=== PATIENT | female | born 1970 | race Caucasian/White ===

== ENCOUNTER → 2019-02-15 10:28 | Outpatient (CLI) | payer OTHER, SELFPAY ==
--- NOTE | 2019-02-15 10:32 | BI_ITS ---
MAMMOGRAPHY - BILATERAL SCREENING REASON FOR EXAM: Female, 48 years old. Routine annual screening examination. PERTINENT HISTORY: Non-contributory. History of prior right breast cyst aspiration. TECHNIQUE: Digital bilateral breast cherry (3D mammographic acquisition) in the CC and MLO projections. 2-D mediolateral oblique (MLO) and craniocaudad (CC) views of both breasts were obtained. CAD: Full Field Digital Mammography with Computer Added Detection was performed. COMPARISON: Comparison is made with prior study dated October 22, 2017 and August 22, 2013. FINDINGS: Breast Composition: The breasts are extremely dense, which lowers the sensitivity of mammography. The previously seen dominant nodular density in the upper lateral portion of the left breast is not seen at this time. There is a residual 1.2 cm x 0.9 cm well-defined nodular density in the inferior midportion of the right breast. No other significant abnormalities are identified. BI/SCREENING MAMM (CAD), BILAT IMPRESSION: Interval resolution of the nodular density in the left breast with residual small nodular density in the inferior midportion of the right breast. Yearly follow-up mammogram recommended. (A) ASSESSMENT CATEGORY: BIRADS Category 2: Benign. A letter regarding these results will be sent to the patient by the facility within 30 days. Approximately 10% of breast cancers are not detected by mammography. A normal mammogram should not delay biopsy of a clinically suspicious abnormality. [id number] Electronically Signed: Rayray Cruz, at 13:10 EDT , Service support ,
== END ==
PROVIDERS: Referring Provider Obstetrics & Gynecology; Visit Provider Obstetrics & Gynecology
DX: Z12.31 Encounter for screening mammogram for malignant neoplasm of breast (principal)
CPT/HCPCS: 77063; 77067

== ENCOUNTER → 2019-12-16 13:55 | Outpatient (CLI) | payer OTHER, SELFPAY ==
[2017-10-26 13:03] VITALS: BMI 22.3
== END ==
PROVIDERS: Visit Provider Obstetrics & Gynecology
DX: N39.0 Urinary tract infection, site not specified (principal)
CPT/HCPCS: 87086; 87088

== ENCOUNTER 2019-12-16 22:40 | Emergency (ER) | payer OTHER, SELFPAY ==
[2019-12-16 22:41] VITALS: BP 118/74; PULSE 89; RESP 18; TEMP 36.6; O2SAT 97; BMI 23.0
[2019-12-16] MEDS: 0.9% Normal Saline 1,000 ML 1000 ML IV (23:55)
[2019-12-16] MEDS: Ondansetron 4 MG/2 ML Vial IV (23:57)
[2019-12-16] MEDS: Morphine 4 MG/ML Syringe IV (23:59)
[2019-12-17 00:19] LABS: Bacteria 0 SEEN /hpf (None Seen); Mucous, Urine 0 SEEN /hpf (<or=2+)
[2019-12-17 00:30] LABS: Color, Urine Yellow (Yellow); Glucose, Dipstick Normal (Normal); Ketone-Dipstick 5 mg/dl (Negative); Leukocyte Esterase-Dipstick Negative /ul (Negative); Nitrite-Dipstick Negative (Negative); Occult Blood-Urine 250 /ul (Negative); Protein-Dipstick Negative (Negative); Specific Gravity, Urine 1.025 (1.002-1.030); Urine Bilirubin Dipstick Negative (Negative); Urine Clarity Clear (Clear); Urine Urobilinogen Normal (Normal)
[2019-12-17 00:45] LABS: ALB/GLOB Ratio 1.6 RATIO (0.9-2.4); AST(SGOT) 11 U/L (15-37); Alanine Aminotransfer ALT/SGPT 25 U/L (13-56); Albumin, Serum 4.3 g/dL (3.2-5.0); Alkaline Phosphatase 58 U/L (45-117); Anion Gap 3 (5-15); BUN 17 mg/dL (7-18); BUN/Creat Ratio 15.9 RATIO (10-20); Calcium,Total 9.2 mg/dL (8.5-10.1); Chloride 109 mmol/L (98-107); Creatinine, Serum 1.07 mg/dL (0.55-1.02); EST Glomerular Filtration Rate 58 mL/min (>60); Est Glom Filt Rate - Afr Amer 71 mL/min (>60); Estimated Creatinine Clearance 56.13 ml/min; Globulin 2.7 g/dL (2.2-4.2); Glucose 118 mg/dL (74-106); Potassium 3.5 mmol/L (3.5-5.1); Sodium Level 141 mmol/L (136-145)
[2019-12-17 00:49] LABS: Absolute Lymphocyte Count 1.72 X10^3/uL (0.83-4.51); Basophil# 0.03 X10^3/uL; Basophil% 0.3 % (0-1); Eosinophil# 0.08 X10^3/uL; Eosinophils% 0.7 % (0-5); Hematocrit 41.6 % (37-47); Hemoglobin 13.9 g/dL (12.0-15.0); Lymphocyte # 1.72 X10^3/ul (4.0); Lymphocyte % 16.1 % (19-41); Mean Corp Hgb Conc 33.4 g/dL (32-36); Mean Corpuscular Hgb 30.3 pg (27.0-32.0); Mean Corpuscular Volume 90.8 fL (81-99); Mean Platelet Vol. 11.6 fl (6.2-12.0); Monocyte# 0.77 X10^3/uL; Monocyte% 7.2 % (0-10); NRBC Flagged by Analyzer 0 % (0-5); Neutrophil # 8.03 X10^3/uL (2.7-7.7); Neutrophil % 75.3 % (47-70); Platelet Count 262 K/mm3 (150-450); RBC Distribution Width CV 13.2 % (11.6-14.6); RBC Distribution Width SD 43.8 fl (35.1-43.9); Red Blood Count 4.58 M/mm3 (4.2-5.4); White Blood Count 10.7 K/mm3 (4.4-11.0)
[2019-12-17 00:54] LABS: Squamous Epithelial Cells - UA 0-5 SEEN /hpf (5-10)
[2019-12-17 00:56] LABS: Calcium Oxalate Crystals Ur RARE /hpf (<or=2+)
[2019-12-17 00:57] LABS: Red Blood Cells-Urine 10-25 SEEN /hpf (0-5); White Blood Cells 0-5 SEEN /hpf (0-5)
[2019-12-17 01:18] LABS: Internal QC Validated? YES +Cl - CLEAR BKGD
--- NOTE | 2019-12-17 01:18 | ED.VISSUMM ---
- ER Visit Summary Date of Service: 12/17/19 Chief Complaint: Right flank and abdominal pain History of Present Illness: The patient is a [address] Vidales and Dr. Su. She reports she has right flank pain that began 6 days ago. States that 2 days ago it got much worse. Says sharp, stabbing pain in her right flank. She describes as an aching pressure in her pelvis. Is 9-10 at worst and 5-10 currently. Is worsened by movement. Is relieved by remaining still in the position. Denies any vaginal bleeding or discharge. Her last menstrual period was 3 weeks ago. She denies any dysuria or frequency. Physical Examination: Vitals: Stable. Afebrile. General: Well-nourished and well-developed. Head: Normocephalic atraumatic. Neck: Supple, no lymphadenopathy. No JVD. Nontender. Cardiovascular: Regular rate and rhythm. No murmurs. Respiratory: No respiratory distress. Clear to auscultation bilaterally. Abdominal: Soft, mild suprapubic tenderness and moderate right lower quadrant tenderness palpation, nondistended, normal bowel sounds. No guarding, rebound, or peritoneal signs. Back: No CVA tenderness. Extremities: Nontender, no edema. Skin: Normal color, no rash. Neurologic: Alert and oriented ?3. Cranial nerves II through XII are intact. Normal strength and sensation. Psych: Normal affect. Test Results: CBC shows segmented neutrophils 75 lymphocytes 16. Chem-7 shows a chloride 109, glucose 118, creatinine 1.07. LFTs show an AST of 11. UA shows 10-25 red blood cells and rare calcium oxalate crystals. Clinical Impression(s) from Imaging Studies Abdomen/Pelvis CT 12/17/19 23:05 IMPRESSION: Mild right hydronephrosis and hydroureter due to a 2.2 mm stone passing the right UV junction. Remainder of abdominal viscera are unremarkable. No bowel obstruction. No focal inflammatory process throughout the gastrointestinal tract. Electronically Signed: Esperanza Bustamante MD at 1:44 EST , Service support , Emergency Department Course and Treatment: Patient was treated with morphine and Toradol IV. She is resting comfortably. Treatment Plan: Patient be discharged with naproxen, Percocet, and Zofran. Instructed to follow-up Dr. Layne in 1 week if not improving. Return to the emergency department for any worsening symptoms. Disposition: To home in improved and stable condition. Impression: 1. Right ureterolithiasis. This note was generated with [employer] dictation software. It may contain incorrect words, spelling, and punctuation that were not noted in review of the chart prior to signing ED Disposition - Plan for ED Patient: Disposition: Home or Assisted Living Instructions: KIDNEY STONE w/ Colic Prescriptions: Naproxen [Naprosyn] 500 mg PO BID #14 tab Prescription Printed Oxycodone HCl/Acetaminophen [Percocet 5/325] 1 tab PO Q6H PRN PRN 3 Days #12 tab PRN Reason: Pain Prescription Printed Ondansetron [Zofran Odt] 4 mg PO Q8H PRN PRN #10 tab PRN Reason: Nausea Prescription Printed Referrals: Roger Layne MD [STAFF PHYSICIAN] - 1 Week if not improving
[2019-12-17 01:20] LABS: Pregnancy, Serum, hCG Quali. NEGATIVE Negative
[2019-12-17] MEDS: Ketorolac 30 MG/ML Syringe IV (01:53)
[2019-12-17] MEDS: Morphine 4 MG/ML Syringe IV (01:54)
[2019-12-17 01:56] VITALS: BP 118/74; PULSE 71; RESP 16; O2SAT 97
[2019-12-17 02:30] VITALS: BP 126/70; PULSE 76; RESP 16; O2SAT 98
--- NOTE | 2019-12-17 23:05 | CT_ITS ---
STUDY: CT ABDOMEN AND PELVIS WITH CONTRAST REASON FOR EXAM: Female, 49 years old. LOWER RIGHT SIDE ABD PAIN/ BACK PAIN X 2 DAYS WITH EMESIS TODAY, HX TUBAL RADIATION DOSAGE (If Supplied By Facility): CTDIvol = ( 11.15 ) mGy, DLP = ( 453.60 ) mGycm TECHNIQUE: Transaxial images were obtained from the dome of the diaphragm to the symphysis pubis without oral contrast. Oral and amp; IV Gastrografin and amp; 100mL Isovue-300 was administered. Sagittal and coronal images were reconstructed. Individualized dose optimization techniques were used for this CT. COMPARISON: None. FINDINGS: Mild posterior dependent atelectasis, remainder of the lung bases are clear. The visualized portions of the heart are within normal limits. There is a small hypoattenuated structure within the inferior aspect of the right liver lobe measuring 8.9 mm most compatible with a cyst. Remainder of the liver is normal. Normal gallbladder and extrahepatic biliary system. Normal spleen. Normal pancreas. Normal bilateral adrenal glands. There is mild right-sided hydronephrosis and hydroureter due to a stone passing the UV junction measuring 3.2 mm. Normal left kidney. Normal visualized stomach. Normal small intestine. Normal colon. There is non-visualization of the appendix. Normal abdominal aorta. Normal inferior vena cava. Normal retroperitoneum. Normal urinary bladder. Anteverted uterus. Sequela of tubal ligation present. Normal abdominal wall. Normal osseous structures. CT/Abdomen/Pelvis WITH Contrast IMPRESSION: Mild right hydronephrosis and hydroureter due to a 2.2 mm stone passing the right UV junction. Remainder of abdominal viscera are unremarkable. No bowel obstruction. No focal inflammatory process throughout the gastrointestinal tract. Electronically Signed: Esperanza Bustamante MD at 1:44 EST , Service support ,
== END 2019-12-17 02:32 | disposition home or self-care (01) ==
LOC: ED 23:15
PROVIDERS: Emergency Provider Emergency Medicine; PCP Family Medicine; Referring Provider Family Medicine
DX: N13.2 Hydronephrosis with renal and ureteral calculous obstruction (principal)
CPT/HCPCS: 74177; 80053; 81001; 84703; 85025; 96361; 96374; 96375; 96376; 99283; J7030; Q9967; A4216; J2405

== ENCOUNTER → 2020-01-11 09:27 | Outpatient (CLI) | payer OTHER, SELFPAY ==
[2019-12-16 22:41] VITALS: BMI 23.0
[2020-01-11 12:31] LABS: Calcium,Total 8.9 mg/dL (8.5-10.1)
== END ==
LOC: MTLAB 09:30 → MTRAD 09:33 → MTLAB 09:43
PROVIDERS: PCP Family Medicine; Referring Provider Urology; Visit Provider Urology
DX: N20.0 Calculus of kidney (principal)
CPT/HCPCS: 36415; 82310

== ENCOUNTER → 2020-08-01 | Outpatient (CLI) | payer OTHER, SELFPAY ==
[2020-08-07 15:13] LABS: HPV Reflexed? NOT INDICATED
== END | disposition home or self-care (01) ==
LOC: LABSPEC 16:52
PROVIDERS: PCP Family Medicine; Visit Provider Obstetrics & Gynecology
DX: Z12.4 Encounter for screening for malignant neoplasm of cervix (principal)
CPT/HCPCS: 88175; G0145

== ENCOUNTER → 2020-08-22 12:22 | Outpatient (CLI) | payer OTHER, SELFPAY ==
--- NOTE | 2020-08-22 12:24 | BI_ITS ---
MAMMOGRAPHY - BILATERAL SCREENING REASON FOR EXAM: Female, 49 years old. Routine annual screening examination. PERTINENT HISTORY: Non-contributory. TECHNIQUE: Digital bilateral breast patrick (3D mammographic acquisition) in the CC and MLO projections. 2-D mediolateral oblique (MLO) and craniocaudad (CC) views of both breasts were obtained. CAD: Full Field Digital Mammography with Computer Added Detection was performed. COMPARISON: Comparison is made with prior examination dated 02/15/2019 and 10/22/2017. FINDINGS: Breast Composition: The breasts are extremely dense, which lowers the sensitivity of mammography. There are no dominant masses or suspicious calcifications. The previously seen nodular density in the inferior midportion of the right breast as decrease in size. Stable scattered microcalcifications. No other significant abnormalities are identified. There has been no significant change since the prior study. BI/SCREEN MAMM (CAD) W/PATRICK BILAT IMPRESSION: Stable bilateral screening mammogram. Yearly follow-up mammogram recommended. (A) ASSESSMENT CATEGORY: BIRADS Category 2: Benign. A letter regarding these results will be sent to the patient by the facility within 30 days. Approximately 10% of breast cancers are not detected by mammography. A normal mammogram should not delay biopsy of a clinically suspicious abnormality. [id number] Electronically Signed: Rayray Cruz, at 10:47 EDT , Service support ,
== END ==
PROVIDERS: PCP Family Medicine; Referring Provider Obstetrics & Gynecology; Visit Provider Obstetrics & Gynecology
DX: Z12.31 Encounter for screening mammogram for malignant neoplasm of breast (principal)
CPT/HCPCS: 77063; 77067

== ENCOUNTER → 2021-01-16 09:06 | Outpatient (CLI) | payer OTHER, SELFPAY ==
--- NOTE | 2021-01-16 09:10 | RAD_ITS ---
STUDY: X-RAY - ABDOMEN/PELVIS REASON FOR EXAM: Female, 50 years old. KUB - KIDNEY STONES TECHNIQUE: Frontal views COMPARISON: None. FINDINGS: Normal visualized lung bases. There is an unremarkable bowel gas pattern. There is no demonstrated free abdominal air. No calcifications are seen over the renal shadows. Normal soft tissue structures. Normal visualized osseous structures. RAD/Abdomen Single View IMPRESSION: Normal x-ray examination of the abdomen and pelvis. Electronically Signed: Francisco Hnut DO at 17:35 EST Tel [phone], Service support ,
== END ==
PROVIDERS: PCP Family Medicine; Referring Provider Urology; Visit Provider Urology
DX: N20.0 Calculus of kidney (principal)
CPT/HCPCS: 74018

== ENCOUNTER → 2021-10-16 15:08 | Outpatient (CLI) | payer OTHER, SELFPAY ==
--- NOTE | 2021-10-16 15:10 | BI_ITS ---
MAMMOGRAPHY - BILATERAL SCREENING REASON FOR EXAM: Female, 50 years old. Routine annual screening examination. PERTINENT HISTORY: Non-contributory. TECHNIQUE: Digital bilateral breast patrick (3D mammographic acquisition) in the CC and MLO projections. 2-D mediolateral oblique (MLO) and craniocaudad (CC) views of both breasts were obtained. CAD: Full Field Digital Mammography with Computer Added Detection was performed. COMPARISON: Comparison is made with prior study dated 08/22/2020 and 02/15/2019. FINDINGS: Breast Composition: The breasts are extremely dense, which lowers the sensitivity of mammography. There are no dominant masses or suspicious calcifications. No other significant abnormalities are identified. There has been no significant change since the prior study. BI/SCRN MAMM (CAD)W/PATRICK BILAT IMPRESSION: Stable bilateral screening mammogram. Yearly follow-up mammogram recommended. (A) ASSESSMENT CATEGORY: BIRADS Category 1: Negative. A letter regarding these results will be sent to the patient by the facility within 30 days. Approximately 10% of breast cancers are not detected by mammography. A normal mammogram should not delay biopsy of a clinically suspicious abnormality. [id number] Electronically Signed: Rayray Cruz MD at 15:39 EST , Service support ,
== END ==
PROVIDERS: PCP Family Medicine; Referring Provider Obstetrics & Gynecology; Visit Provider Obstetrics & Gynecology
DX: Z12.31 Encounter for screening mammogram for malignant neoplasm of breast (principal)
CPT/HCPCS: 77063; 77067

== ENCOUNTER 2022-01-08 10:15 | Outpatient (CLI) | payer OTHER, SELFPAY ==
[2022-01-12 15:37] LABS: HPV Reflexed? NOT INDICATED
== END 2022-01-08 23:59 | disposition home or self-care (01) ==
LOC: LABSPEC 10:16
PROVIDERS: PCP Family Medicine; Visit Provider Obstetrics & Gynecology
DX: Z12.4 Encounter for screening for malignant neoplasm of cervix (principal)
CPT/HCPCS: 88175; G0145

== ENCOUNTER → 2022-10-17 | Outpatient (CLI) | payer OTHER, SELFPAY ==
--- NOTE | 2022-10-17 14:07 | BI_ITS ---
MAMMOGRAPHY - BILATERAL SCREENING REASON FOR EXAM: Female, 51 years old. Routine annual screening examination. PERTINENT HISTORY: Non-contributory. Occasional bilateral breast tenderness. TECHNIQUE: Digital bilateral breast partick (3D mammographic acquisition) in the CC and MLO projections. 2-D mediolateral oblique (MLO) and craniocaudad (CC) views of both breasts were obtained. CAD: Full Field Digital Mammography with Computer Added Detection was performed. COMPARISON: Comparison is made with prior study dated 10/16/2021 and 08/22/2020. FINDINGS: Breast Composition: The breasts are extremely dense, which lowers the sensitivity of mammography. There are no dominant masses or suspicious calcifications. There is a 1.4 cm x 1 cm well-defined nodule in the slightly upper lateral aspect of the left breast. Correlation with ultrasound is recommended. No other significant abnormalities are identified. BI/SCRN MAMM (CAD)W/PATRICK BILAT IMPRESSION: 1.4 cm x 1 cm well-defined nodule in the upper slightly lateral aspect of the left breast. Correlation with ultrasound is recommended. ASSESSMENT CATEGORY: BIRADS Category 2: Benign. A letter regarding these results will be sent to the patient by the facility within 30 days. Approximately 10% of breast cancers are not detected by mammography. A normal mammogram should not delay biopsy of a clinically suspicious abnormality. [id number] Electronically Signed: Rayray Cruz MD at 15:14 EST ,
== END | disposition home or self-care (01) ==
PROVIDERS: PCP Family Medicine
DX: Z12.31 Encounter for screening mammogram for malignant neoplasm of breast (principal)
CPT/HCPCS: 77063; 77067

== ENCOUNTER 2022-11-27 06:34 | Day surgery (SDC) | payer OTHER, SELFPAY ==
[2022-11-27] MEDS: Lactated Ringers 1,000 ML 15 ML IV (06:57)
[2022-11-27 06:58] VITALS: BP 127/66; PULSE 80; RESP 18; TEMP 36.6; O2SAT 99; BMI 23.6
--- NOTE | 2022-11-27 07:33 | H&P.OPEN ---
[facility] - General General Date of Service: 11/27/22 HPI Narrative CHRISTINE OLIVIER, is a 52 F who presents for screening colonoscopy through our open access system. She confirms the history provided that she had a single benign polyp removed some 20 to 30 years ago during a diagnostic sigmoidoscopy for GI bleeding. She states that she had issues with this remotely, but has not had problems recently. She notes that at least a component of it was due to hemorrhoid activity. She confirms that she has not had any other changes to her bowel function. She denies any use of blood thinners. She denies any family history for significant GI diagnoses?including colon cancer. [facility] Medical History (Updated 11/25/22 @ 09:37 by Marlene Shah) Alcohol use Back pain Bilateral breast cysts History of edema Hx of sigmoidoscopy Low iron Non-smoker Varicose vein of leg Wears glasses Home Medications naproxen 500 mg tablet 500 mg PO PRN PRN Pain 11/25/22 [History Last Taken Unknown] Allergy/AdvReac Type Severity Reaction Status Date / Time No Known Allergies Allergy Verified 11/27/22 06:56 Family History (Updated 10/20/22 @ 08:30 by Paulina Ledesma) Mother Diabetes Father Heart disease Myocardial infarction Surgical History History of adenoidectomy History of tubal ligation Social History Smoking Status: Never smoker second hand exposure: No alcohol intake: current alcohol intake frequency: a few times a week Alcohol type: beer and wine substance use type: does not use caffeine: Yes what type of physical activity do you participate in: aerobics and weight training frequency: 3-4 times per week duration: 15-30 minutes/day seatbelt use: always Past Medical/Surgical History Planned Operation Planned Operative Procedure/s: CSCOPE OA Previous Hospitalizations/Surgeries HX Hospitalizations: No Any Problems With Anesthesia: No You/Your Family Experience Fever (Hyperthermia) With Anes: No Cholinesterase deficiency: No Cardiovascular Hx of Irregular Heartbeat and/or Afib: No Hx Heart Attack: No Hx Congestive Heart Failure: No Hx Hypertension: No Hx Pacemaker: No Respiratory Hx Chronic Obstructive Pulmonary Disease (COPD): No Hx Asthma: No Hx Emphysema: No Hx Sleep Apnea: No Hx Respiratory Tract Infection/Cold (presently): No Do You Snore Loudly (louder than talking or can be heard): Yes Do You Often Feel Tired/ Fatigued/ Sleepy Dring Daytime?: No Has Anyone Observed You Stop Breathing During Sleep?: No Result (for STOP score): Negative Smoking Status: Never smoker Gastrointestinal Hx Gastroesophageal Reflux: No Hx Ulcer: No Neurological Hx Seizures: No Hx Headaches: No Does patient have nerve stimulator: No Reproduction : No Miscellaneous Recent Exposure to Contagious Disease: No Allergies No Known Allergies Allergy (Verified 11/27/22 06:56) Discharge Is Pt Admitted From a Skilled Nursing, or a Fpc: No After D/C, Where Do you Plan to Go: Return Home Vital Signs Vital Signs Vital Signs: 11/27/22 06:58 11/27/22 06:58 Temperature 98 F Temperature Source Temporal Pulse Rate 80 Respiratory Rate 18 Respiratory Pattern Normal Blood Pressure 127/66 H Blood Pressure Mean 86 Blood Pressure Source Monitor Blood Pressure Position Semi-Fowlers Blood Pressure Location Right Arm Pulse Ox 99 Oxygen Delivery Method Room Air Weight Weight: 138 lb Body Mass Index (BMI) 23.6 Physical Exam Const alert, oriented x3 and no apparent distress General Appearance: cooperative GI GI Narrative: Nondistended, no scars. Soft and nontender to palpation x4 quadrants Assessment & Plan Assessment/Plan (1) Encounter for screening for malignant neoplasm of colon: PLAN: Patient is a 52-year-old female who presents for screening colonoscopy through open access system. She confirms the history provided. She is at average risk for colon cancer. She notes a history of benign colon polyp removed 20 to 30 years ago. She states no formal follow-up was recommended at that time. She has not had any further issues with bleeding that she did around the time of that prior scope. She confirms that she completed a bowel prep successfully for today's procedure and that her output is now clear. Therefore we will plan to proceed to the endoscopy suite for screening colonoscopy. Surgery Risks - Colonoscopy Risks Include but are not Limited To: Risks include but are not limited to: Bleeding, perforation requiring further surgery, inability to complete colonoscopy requiring barium enema.
[2022-11-27 08:20] VITALS: BP 112/74; BP 127/66; PULSE 79; RESP 16; TEMP 36.1; O2SAT 97
[2022-11-27 08:25] VITALS: BP 104/68; BP 127/66; PULSE 69; RESP 16; O2SAT 98
--- NOTE | 2022-11-27 08:26 | OP.CCLET_ITS ---
11/27/2022 Matthias Su Re : Colonoscopy procedure for Richelle Omer Dear Su This procedure was performed on November. My impressions and recommendations are as follows: Impressions : - Tortuous colon. - The entire examined colon is normal on direct and retroflexion views. - No specimens collected. - Normal digital-rectal examination. Recommendations : - Discharge patient to home (via wheelchair). - Resume regular diet today. - Continue present medications. - Repeat colonoscopy in 10 years for screening purposes. My findings are described in the full procedure note, which is enclosed. If I can be of further assistance, please feel free to contact me at Doctor phone number(s): , Work: . Sincerely, Russ Cote MD 11/27/2022 8:26:05 AM This report has been signed electronically.
--- NOTE | 2022-11-27 08:26 | OP.COLON_ITS ---
Patient Name: Richelle Omer Procedure Date: 11/27/2022 7:17 AM Date of : 1970 Age: 52 Procedure: Colonoscopy Indications: Screening for colorectal malignant neoplasm Providers: Russ Cote MD Medicines: See the Anesthesia note for documentation of the administered medications Patient Profile: Last Colonoscopy: more than 10 years ago. Complications: No immediate complications. Estimated blood loss: None. Procedure: Pre-Anesthesia Assessment: - The heart rate, respiratory rate, oxygen saturations, blood pressure, adequacy of pulmonary ventilation, and response to care were monitored throughout the procedure. After I obtained informed consent, the scope was passed under direct vision. Throughout the procedure, the patient's blood pressure, pulse, and oxygen saturations were monitored continuously. The pediatric colonoscope was introduced through the anus and advanced to the cecum, identified by the appendiceal orifice, IC valve and transillumination. Scope In: 7:41:57 AM Scope Withdrawal Time 0 hours 15 minutes 25 seconds Scope Out: 8:16:28 AM Total Procedure Duration Time 0 hours 34 minutes 31 seconds Findings: The proximal transverse colon was moderately tortuous. Advancing the scope required applying abdominal pressure. The entire examined colon appeared normal on direct and retroflexion views. Impression: - Tortuous colon. - The entire examined colon is normal on direct and retroflexion views. - No specimens collected. - Normal digital-rectal examination. Recommendation: - Discharge patient to home (via wheelchair). - Resume regular diet today. - Continue present medications. - Repeat colonoscopy in 10 years for screening purposes. Procedure Code(s): --- Professional --- G0121, Colorectal cancer screening; colonoscopy on individual not meeting criteria for high risk Diagnosis Code(s): --- Professional --- Z12.11, Encounter for screening for malignant neoplasm of colon Q43.8, Other specified congenital malformations of intestine CPT copyright 2017 [employer]. All rights reserved. The codes documented in this report are preliminary and upon group home supervisor review may be revised to meet current compliance requirements. Russ Cote MD 11/27/2022 8:26:05 AM This report has been signed electronically. Number of Addenda: 0 Note Initiated On: 11/27/2022 7:17 AM
[2022-11-27 08:30] VITALS: BP 105/77; BP 127/66; PULSE 67; RESP 16; O2SAT 100
[2022-11-27 08:35] VITALS: BP 107/85; BP 127/66; PULSE 65; RESP 16; TEMP 36.1; O2SAT 98
[2022-11-27 08:59] VITALS: BP 127/66
== END 2022-11-27 09:41 | disposition home or self-care (01) ==
LOC: EN 06:35 → AC 06:38
PROVIDERS: PCP Family Medicine; Referring Provider Family Medicine; Visit Provider Surgery
PROC: 0DJD8ZZ Inspection of Lower Intestinal Tract, Via Natural or Artificial Opening Endoscopic (ICD-10-PCS; CPT 45378; principal; 2022-11-27 07:25)
DX: Z12.11 Encounter for screening for malignant neoplasm of colon (principal); Q43.8 Other specified congenital malformations of intestine; Z79.1 Long term (current) use of non-steroidal anti-inflammatories (NSAID); Z86.010 Personal history of colon polyps
CPT/HCPCS: 45378; J7120; J2405

== ENCOUNTER → 2023-10-27 | Outpatient (CLI) | payer OTHER, SELFPAY ==
--- NOTE | 2023-10-27 11:57 | BI_ITS ---
MAMMOGRAPHY - BILATERAL SCREENING REASON FOR EXAM: Female, 52 years old. Routine annual screening examination. PERTINENT HISTORY: Non-contributory. TECHNIQUE: Digital bilateral breast patrick (3D mammographic acquisition) in the CC and MLO projections. 2-D mediolateral oblique (MLO) and craniocaudad (CC) views of both breasts were obtained. CAD: Full Field Digital Mammography with Computer Added Detection was performed. COMPARISON: Comparison is made with prior study dated July 18, 2022 and October 16, 2021. FINDINGS: Breast Composition: The breasts are extremely dense, which lowers the sensitivity of mammography. There is a 2.1 cm x 2 cm well-defined nodule in the slightly upper lateral aspect of the left breast. There is also evidence of a 1.7 cm x 1.4 cm well-defined nodule in the superior retroareolar region of the left breast. Correlation with ultrasound is recommended for further evaluation. There is also evidence of a 2 cm x 2.5 cm well-defined nodule in the retroareolar region of the right breast. No other significant abnormalities are identified. BI/SCRN MAMM (CAD)W/PATRICK BILAT IMPRESSION: Bilateral breast nodules as described. Correlation with ultrasound is recommended. ASSESSMENT CATEGORY: BIRADS Category 0: Incomplete. Need additional imaging evaluation. A letter regarding these results will be sent to the patient by the facility within 30 days. Approximately 10% of breast cancers are not detected by mammography. A normal mammogram should not delay biopsy of a clinically suspicious abnormality. [id number] Electronically Signed: Rayray Cruz MD at 12:47 EST ,
== END | disposition home or self-care (01) ==
LOC: OPBI 11:56
PROVIDERS: PCP Family Medicine; Referring Provider Registered Nurse; Visit Provider Registered Nurse
DX: Z12.31 Encounter for screening mammogram for malignant neoplasm of breast (principal)
CPT/HCPCS: 77063; 77067

== ENCOUNTER → 2023-11-02 | Outpatient (CLI) | payer OTHER, SELFPAY ==
--- NOTE | 2023-11-02 07:51 | US_ITS ---
STUDY: ULTRASOUND BREAST - BILATERAL REASON FOR EXAM: Female, 52 years old. Bilateral breast nodules on mammogram. TECHNIQUE: Axial and longitudinal images of the BILATERAL breast were performed with a high resolution ultrasound transducer. # OF IMAGES: 135 COMPARISON: None. FINDINGS: BILATERAL Breast: Bilateral breast cysts are seen. The largest in the right breast measures 3.4 size by 4.17 x 1.9 cm. This is at the 9:00 position of the breast at 3 cm from nipple. The cyst is septated. Multiple cysts are also seen in the left breast. The largest measures 2.1 sono by 1.8 cm x 1.3 cm. This is located at 2:00 region of the breast at 5 cm from nipple. There is also evidence of dilated ducts. US/Breast Limited Unilateral IMPRESSION: Bilateral breast cysts. Left retroareolar dilated ducts. ASSESSMENT CATEGORY: BIRADS Category 2: Benign. A letter regarding these results will be sent to the patient by the facility within 30 days. Electronically Signed: Rayray Cruz MD at 13:27 EST ,
== END | disposition home or self-care (01) ==
LOC: OPUS 07:50
PROVIDERS: PCP Family Medicine; Referring Provider Registered Nurse; Visit Provider Registered Nurse
DX: N60.01 Solitary cyst of right breast (principal); N60.02 Solitary cyst of left breast
CPT/HCPCS: 76642

== ENCOUNTER → 2024-09-07 | Outpatient (CLI) | payer OTHER, SELFPAY ==
[2024-09-07 17:26] LABS: ALB/GLOB Ratio 1.2 RATIO (0.9-2.4); AST(SGOT) 24 U/L (15-37); Alanine Aminotransfer ALT/SGPT 29 U/L (13-56); Albumin, Serum 3.9 g/dL (3.2-5.0); Alkaline Phosphatase 55 U/L (45-117); Anion Gap 6 (5-15); BUN 12 mg/dL (7-18); BUN/Creat Ratio 13.8 RATIO (10-20); Calcium,Total 8.9 mg/dL (8.5-10.1); Chloride 108 mmol/L (98-107); Creatinine, Serum 0.87 mg/dL (0.55-1.02); EST Glomerular Filtration Rate 73 mL/min (>60); Est Glom Filt Rate - Afr Amer 88 mL/min (>60); Globulin 3.2 g/dL (2.2-4.2); Glucose 98 mg/dL (74-106); Potassium 3.9 mmol/L (3.5-5.1); Protein, Total 7.1 g/dL (6.4-8.2); Sodium Level 137 mmol/L (136-145); T4 Free Direct 0.93 ng/dL (0.76-1.46)
--- OUTSIDE RECORDS SUMMARY | 2024-09-07 18:22 | XMS RPT_ITS | CCD ---
Author Organization [facility] Care Team Providers Care Passenger Solicitor Name Role Phone Lakia Crum Unavailable Marissa Lara Unavailable Unavailable Unavailable Primary Care Provider Unavailabl Lakia Cabrera Unavailable Unavailable Unavailable Ms. Teri Maher Referring Maria Luisav kekenini Maher Ms. Williamson Charis Attending Unav ailable LAKIA CRUM Primary Care Unavaila Lakia Orozco MD Primary Care Provider TERI MAHER Attending Unavailable LAKIA CRUM Primary Care Unavailable Medications Current Medications Medication Drug Class(es) Dates Sig (Normalized) Sig (Original) collagen/biotin/ascorbic acid (COLLAGEN 1500 PLUS C ORAL) (1 source) collagen/biotin/ ascorbi c acid (COLLAGEN 1500 PLUS C ORAL) Take by mouth. Active Problems Active Problems Problem Classification Problem Date Documented Da te Episodic/Chronic Conditions associated with dizziness or vertigo (5 sources) Dizziness; Translations: [Dizziness and giddiness] Onset: 03-03-2024 03-03-2024 Episodic Nonmalignant breast conditions (1 source) Cyst of breast; Translations: [Solitary cyst of breast] Episodic Open wounds of extremities (1 source) Laceration of right forearm; Translations: [Open wound of forearm, without mention of complication] 04-12-2021 Episodic Other screening for suspected conditions (not mental disorders or infectious disease) (2 sources) Patient encounter status; Translations: [Other screening mammogram] Episodic Unclassified (2 sources) R ARM LAC 04-12-2021 Comment on above: R ARM LAC Unclassified (1 source) Laceration of forearm, right 04-12-2021 Past or Other Problems Problem Classification Problem Date Documented Da te Episodic/Chronic Unclassified (1 source) Onset: 03-03-2024 03-03-2024 Results Test Name Value Interpretation Reference Range Facility ECG 12 lead (Clinic Performe d)on 03-03-2024 Normal sinus rhythm ventricular rate 84 bpm [facility] Work Phone: [facility] Work Phone: Office Visit (Primary Care T xt/Forms)on 10-13-2022 Follow-up visit Diagnoses/Problems Assessed Bilateral breast cysts (610.0) (N60.01,N60.02) Orders Colon cancer screening General Surgery Referral Evaluation and Treatment Evaluate AND Treat Status: Hold For - Scheduling,Retrospective By Protocol Authorization Requested for: 13Oct2022 Encounter for screening mammogram for malignant neoplasm of breast Mamm - Screening Mammogram w/ Tomosynthesis; Status:Active; Requested for:29Oct2022; Radiologist to Determine Optimal Study : Y What are the patient's signs and symptoms ? : Annual Screening Mammogram SocHx: Non-smoker Tobacco Use Screening; Status:Complete; Done: 13Oct2022 Provider Impressions Provider Impressions Free Text Note Form: Schedule mammography and screening colonoscopy through [facility] at her request Chief Complaint NPV, INACTIVE, BREAST CONCERNS History of Present Illness Christine comes to the office to re-establish care. Requests orders for mammography and screening colonoscopy. 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 Complains of cysts to her right breast and most recently now in her left breast that are worse prior and during her menses. In 2016 she had right breast cysts that were drained. Breasts described as feeling very tender AND sore. Sleeping w/ bra on @ night. Feels like a toothache . Scheduled for well woman exam in Dec. of next year. MMG due in October. No fxhx breast CA. Menses: regular (varies by week to week on duration AND timing) Brothers- well. Father NM @ age 65Y. Mom of asphasia in mid 60's. Limits caffeine kathy. around time of menses. last PAP <1Y ago; all previous PAP's normal per pt report will establish w/ a new CAPPER MACHINE OPERATOR in [place] physical activity: low impact HIT workouts 15-40 5D/WK diet: overall eats healthy; avoids sugar as it causes fatigue Tdap UTD; recommend yrly influenza vaccination, shingles next yr remote renal stone 3Y ago; saw urology, watches diet AND avoid spinach, broccoli AND tea. Nonsurgical. Passed stone on own, no further stones since that time Review of Systems Constitutional: not feeling tired, no fever and no chills. Genitourinary:. h/o remote renal calculi. Integumentary: breast lump, breast pain and masses, but no nipple discharge . bilateral breasts. Active Problems Problems Colon cancer screening (V76.51) (Z12.11) Encounter for screening mammogram for malignant neoplasm of breast (V76.12) (Z12.31) Surgical History Problems History of Adenoidectomy History of Tubal ligation Family History Mother Family history of Aphasia determined by examination Family history of diabetes mellitus (V18.0) (Z83.3) Father Family history of myocardial infarction (V17.3) (Z82.49) Social History Problems No illicit drug use Non-smoker (V49.89) (Z78.9) Occasional alcohol use Allergies Medication No Known Drug Allergies Vitals Vital Signs Recorded: 13Oct2022 10:53AM Heart Rate: 72 Systolic: 110 Diastolic: 68 Height: 5 ft 4 in Weight: 143 lb 4 oz BMI Calculated: 24.59 kg/m2 BSA Calculated: 1.7 Tobacco Use: b) No PHQ-2 #1. Over the last 2 weeks have you felt down, depressed or hopeless? (If yes, answer PHQ-9 below): No PHQ-2 #2. Over the last 2 weeks have you felt little interest or pleasure in doing things? (If yes, answer PHQ-9 below): No Falls Screening (Age 18+): a) No falls within the last year O2 Saturation: 98 Physical Exam Constitutional - Well developed, well nourished, well hydrated and no acute distress. Vital signs reviewed. Pulmonary - No grunting, flaring or retractions. No rales or wheezing. Good air exchange. Cardiovascular - Regular rate and rhythm. No significant murmur. no significant lower extremity edema. Abdomen - Soft, non-tender, no masses. No hepatomegaly or splenomegaly. normal active bowel sounds. Signatures Electronically signed by : PATRICE Alas; Oct 13 2022 11:26AM EST (Author) Normal [employer] Tobacco Screening.on Adult depression screening assessment No [employer] [facility] Work Phone: Fall risk assessment a) No falls within the last year [employer] [facility] Work Phone: Tobacco use status CPHS b) No [employer] [facility] Work Phone: CNPNon 09-22-2022 CNPN Telephone (FAMPWS) -------- CHRISTINE OLIVIER ([id number]) 1970 F Date Time Provider Department 09/22/22 [facility] During your visit today, we recorded the following information about you: Marcela Roberto 09/22/2022 5:17 PM Signed Spoke with PT. She is experiencing pain where the lumps are located in her breast, swelling and severe radiating pain to arm pit when nipple is touched. Attempeted multiple times to reach a triage nurse to speak with pt and ended up loosing the conection. I did have the chance to inform the pt that I would be sending this message and the pt is aweare that a Nurse will be contacting her. Please call pt as soon as able. Thank you! Marcela Roberto Princess Farris RN 09/24/2022 12:16 PM Addendum Returned patient's call. She was seen by Dr. Montalvo at [facility] in 2017 for breast problems which required drainage. Her says her current symptoms are related to this previous problem and she is asking for appointment with Dr. Montalvo. Advised patient she will probably need referral and has an appointment with Frieda Fontana on 09/26. She states she has a PCP in [place]. Advised patient to call tomorrow AM to request appointment in General Surgery. Princess M Lentine, RN Allergies As of Date: 09/22/2022 (Not on File) Date Reviewed: Never Reviewed Reason for Visit: Patient Question [1477] Problem List As Of Date: 09/22/2022 (None) Encounter Status:Closed by PRINCESS FARRIS on 09/22/22 Normal [facility] Provider Note - ED v2on 05-2 Provider Note - ED v2 Provider Note - ED v2: Chart Review: ED NOTES ED NOTES: ====HPI==== Patient is a 50-year-old female who presents to the emergency department with a chief complaint of a laceration. Patient states that she was taking out the trash had a broken face and at approximately 1 hour ago when she lacerated her right forearm. She is not up-to-date on her tetanus immunization. She has minimal pain. She denies any other symptoms. PMHX: Denies Social HX: Denies TOBACCO Occasional ETOH Denies DRUGS ====Review of Systems==== 10 point system review is negative except for those specifically mentioned in history of present illness ====Physical Exam==== Constitutional/General: Alert and oriented x3, well appearing, nontoxic, and in NAD. Head: Normocephalic and atraumatic. Eyes: EOMI, conjunctive normal, sclera nonicteric, subconjunctival layer is pink. Neck: Supple, full ROM, no stridor, no crepitus, no meningeal signs. Trachea at midline. Respiratory: Lungs clear to auscultation bilaterally, no wheezes, rales, or rhonchi, not in respiratory distress. Cardiovascular: Regular rate, regular rhythm, no murmurs, gallops, or rubs, 2+ distal pulses. Chest: normal chest wall movement GI: Abdomen soft, nontender, nondistended, no organomegaly, no palpable masses, no rebound, guarding, or rigidity. Musculoskeletal: Right arm with 3cm laceration noted to right forearm. Subcutaneous tissue is present. Full ROM of right arm. Moves all extremities x4, warm and well perfused, no clubbing, cyanosis, or edema, cap refill <3 seconds Integument: Skin warm and dry, no rashes. Lymphatic: No lymphadenopathy noted. Neurologic: No focal deficits Psychiatric: Normal affect. ====ED Course and Medical Decision Making==== See MDM section for review of findings & plan of care. Portions of this note were dictated by speech recognition. An attempt at proof reading was made to minimize errors. Minor errors in general activities therapist may be present. Please call if questions.. HISTORY OF PRESENTING ILLNESS CHRISTINE is a 50 year old Female and was seen by me at 12-Apr-2021 15:02 for a chief complaint of lacerations (Right forearm laceration, approx 3cm in length, pt cut arm approx 30 mins ago on dirty vase in garage, unknown last tet shot.)(1). Triage Information: Most recent Vital Sign Value Date Heart Rate (beats/min): 84 04-12-2021 14:59 Respirations (breaths/min): 18 04-12-2021 14:59 SpO2 (%): 98 04-12-2021 14:59 BP Systolic (mm Hg): 132 04-12-2021 14:59 BP Diastolic (mm Hg): 106 04-12-2021 14:59 PAST MEDICAL HISTORY ATTESTATION: I have reviewed and confirmed nurse's/medic's notes for patient's medications, allergies, and medical, surgical, family and social history ALLERGIES/INTOLERANCES: No Known Allergies HEALTH HISTORY: No documented data. OUTPATIENT MEDICATIONS: Home Medications Review Status for Reconciliation: N/A Med Status: N/A No documented data. SIGNIFICANT EVENTS: Past Medical History Description:kidney stones CAPPER MACHINE OPERATOR: Is : no(1) Is : no(1) MEDICAL DECISION MAKING/ED COURSE MDM/ED COURSE: Is a 50-year-old female who presents to the emergency department with a right arm laceration. Laceration was repaired with sutures. Patient tolerated the procedure well without difficulty or complication. Her tetanus was updated. She will be discharged home with recommended follow-up with her family physician return for any new or worsening symptoms. PROCEDURE LACERATION REPAIR Procedure performed by: me Auto Adjudication Specialist(s): none Findings: grossly normal anatomy Specimen: no Estimated Blood Loss (mL): (minimal) Post-Procedure Diagnosis: Right arm laceration The patient presents with a 3.00 cm long laceration of the right, forearm. The area was draped and prepped per protocol. Local anesthesia was achieved with 1% lidocaine. The wound was cleansed and extensively cleansed, the area was explored in a bloodless field. There was no injury to the tendon(s). 5 4-0 interrupted Ethilon sutures in the skin. Complications: There were no complications associated with the procedure CLINICAL IMPRESSION Diagnosis/Annotation: ED Dx Name:Laceration of forearm, right Code:S51.811A Disposition: discharged Type: home ATTESTATION CRITICAL CARE TIME Is this a critically ill patient: no Electronic Signatures: Marissa Lara (PAC) (Signed 12-Apr-2021 15:55) Authored: ED Notes, HPI, PMH, MDM/ED Course, Procedure, Clinical Impression, Attestation, Chart Review, Scores Last Updated: 12-Apr-2021 15:55 by Marissa Lara (PAC) References: 1. Data Referenced From Triage - ED 12-Apr-2021 14:59 Normal [facility] Risk Screen - Adult Emergenc yon 04-12-2021 Risk Screen - Adult Emergency Preferred Language: Preferred Language: Preferred Language for Discussing Health Care (patient/designee)Shefali canales Advanced Directives: Advance Directive/DNRno Family Violence Adult: Abuse Screen: Are you or have you been threatened or abused physically, emotionally, or sexually by anyoneno Learning Assessment (Patient): Learning Assessment (Patient): Patient is Able to be Assessed for Learningyes Factors Influencing Readiness to Learninterest in learning Factors that Impact Ability to Learnnone Devices/Methods Used to Communicatenone Learning Preferencesaudio Cultural Considerationsnone Developmental Considerationsnone Tenriism Considerationsnone Learning Assessment (Other Learner): Learning Assessment (Other Learner): Other learner availableyes... Learnerdaughter Factors Influencing Readiness to Learnacuteness of illness, interest in learning Factors that Impact Ability to Learnnone Devices/Methods Used to Communicatenone Learning Preferencesaudio Cultural Considerationsnone Developmental Considerationsnone Tenriism Considerationsnone Pressure Injury/TB/Substance: Pressure Injury: Pressure Injury Present on Admissionno Do you have a coughno Substance Use Current or Former Historynever: Cigarette/Tobacco, e-Cigarette/Vaping, Street Drugs YES: Alcohol Alcohol Useoccasionally Admission Risk Screen: Significant IndicatorsComplete CAGE: CAGE: Is this an injured patient at a Tra[place] Center [place]/[place] /[place]): no Electronic Signatures: Jeovany Connolly (RN) (Signed 12-Apr-2021 15:04) Authored: Preferred Language, Advanced Directives, Family Violence Adult, Learning Assessment (Patient), Learning Assessment (Other Learner), Pressure Injury/TB/Substance, Pressure Injury, CAGE Last Updated: 12-Apr-2021 15:04 by Jeovany Connolly (RN) [facility] Triage - EDon 04-12-2021 Triage - ED Quick Triage: Are You no Have You Given In The Last 6 Weeksno Are You Currently Breastfeedingno The patient and/or guardian verbally acknowledges placement for services into the following (when Urgent Care Service hours are operating):emergency department Chart Review: ARRIVAL INFORMATION Mode of Arrival: private vehicle CHIEF COMPLAINT CHRISTINE OLIVIER is a Female patient with a chief complaint of lacerations (Right forearm laceration, approx 3cm in length, pt cut arm approx 30 mins ago on dirty vase in garage, unknown last tet shot.). Triage Date/Time: 12-Apr-2021 14:59 LORI: 4 Pain Rating (0-10): 2 = Mild Vital Signs: Temperature: F ( C) taken oral Blood Pressure: 132/106 Mean: Heart Rate: 84 Respiratory Rate: 18 Pulse Oximetry: 98% on room air, no respiratory support. Height: 5 feet 4 inches. 162.5 CM Weight: 132.9 pounds. Calculated 60.3 kg. (stated) Calculated BMI (kg/m2): 22.835 Calculated BSA (m2) 1.65 [place] Coma Scale: Best Eye Response: (E4) spontaneous Best Motor Response: (M6) obeys commands Best Verbal Response: (V5) oriented Eren Score: 15 Allergies: no Patient has homicidal thoughts: no Symptoms Are POSITIVE For: avulsion and laceration. Symptoms Are Negative For: abrasion, bleeding, bruising, fever, lump, redness, swelling and discharge. Risk Screens Suicide Risk Screen In the Past Month: Have you wished you were or wished you could go to sleep and not wake up no In the Past Month: Have you had any actual thoughts of killing yourself no In Your Lifetime: Have you ever done anything, started to do anything, or prepared to do anything to end your life no Saavedra Fall Scale Screening Has the patient fallen before (or is the patient in the ED as a result of a fall) has not had a fall Does the patient have an impaired gait does not have impaired gait Is the patient cognitively impaired not cognitively impaired Interventions: Saavedra Fall Interventions: LOW INTERVENTIONS: *patient oriented to surroundings and call system, * patient/family falls education completed and documented, *patients fall status communicated during bedside handoff, *whiteboard updated, *mode of toileting discussed with patient, *bed in low position with brakes locked, *call light in reach, * non-skid footwear TRAVEL HISTORY Travel History Coronavirus Screening: no exposure or symptoms PAIN Pain Scale Used: MIKI Pain Rating (0-10): 2 = Mild Past Medical History: Past Medical History Reviewedyes kidney stones: Past Medical History, Active Electronic Signatures: Jeovany Connolly (RN) (Signed 12-Apr-2021 15:02) Entered: Risk Screens, Pain, Chart Review, Scores, Past Medical History Authored: Quick Triage, Risk Screens, Pain, Chart Review, Scores, Past Medical History Last Updated: 12-Apr-2021 15:02 by Jeovany Connolly (RN) [facility] Vital Signs Date Time Vital Sign Value Performing Clinician Kadeem fitzpatrick 03-03-2024 10:33-0400 Body height 162.6 cm Teri Clem PATRICE Work Phone: [facility] 03-03-2024 10:33-0400 Body mass index (BMI) [Ratio] 23.84 kg/m2 Teri Clem RONALD-STRIPER Work Phone: [facility] 03-03-2024 10:33-0400 Body weight 63.01 kg Teri Maher APRN-STRIPER Work Phone: [facility] 03-03-2024 10:33-0400 Diastolic blood pressure 80 mm[Hg] Teri Clem AFFILIATE MARKETING COORDINATOR-STRIPER Work Phone: [facility] 03-03-2024 10:33-0400 Heart rate 80 /min Teri Clem AFFILIATE MARKETING COORDINATOR-STRIPER Work Phone: [facility] 03-03-2024 10:33-0400 SaO2% (BldA) [Mass fraction] 99 % Teri Maher APRN-STRIPER Work Phone: [facility] 03-03-2024 10:33-0400 Systolic blood pressure 122 mm[Hg] Teri Maher APRN-STRIPER Work Phone: [facility] 10-13-2022 10:53-0500 Body height 162.56 cm Martyalex Ledbetterd Work Phone: [facility] Work Phone: 10-13-2022 10:53-0500 Body mass index (BMI) [Ratio] 24.59 kg/m2 Satishbruno Isrrael Crum Work Phone: [facility] Work Phone: 10-13-2022 10:53-0500 Body surface area Derived from formula 1.7 m2 Satishbruno Isrrael Crum Work Phone: [facility] Work Phone: 10-13-2022 10:53-0500 Body weight 64.98 kg Lakia Crum Work Phone: [facility] Work Phone: 10-13-2022 10:53-0500 Diastolic blood pressure 68 mm[Hg] Lakia Ledbetterd Work Phone: [facility] Work Phone: 10-13-2022 10:53-0500 Heart rate 72 /min Martyalex Isrrael Crum Work Phone: [facility] Work Phone: 10-13-2022 10:53-0500 SaO2% (BldA) [Mass fraction] 98 % Martyalex Isrrael Crum Work Phone: [facility] Work Phone: 10-13-2022 10:53-0500 Systolic blood pressure 110 mm[Hg] Lakia Crum Work Phone: [facility] Work Phone: 04-12-2021 18:00-0400 Diastolic blood pressure 76 mm[Hg] Lakia Ledbetterd Other Phone: [facility] 04-12-2021 18:00-0400 Heart rate 76 /min Lakia Ledbetterd Other Phone: [facility] 04-12-2021 18:00-0400 Respiratory rate 16 /min Lakia Ledbetterd Other Phone: [facility] 04-12-2021 18:00-0400 SaO2% (BldA) [Mass fraction] 97 % Lakia Crum Other Phone: [facility] 04-12-2021 18:00-0400 Systolic blood pressure 113 mm[Hg] Lakia Ledbetterd Other Phone: [facility] 04-12-2021 16:59-0400 Body height 162.5 cm Lakia Crum Other Phone: [facility] 04-12-2021 16:59-0400 Body weight 60.3 kg Lakia Crum Other Phone: [facility] Encounters Encounter Date Encounter Type Care Provider Facility Start: 03-03-2024 End: 03-03-2024 ambulatory [facility] Ambulatory Start: 03-03-2024 End: 03-03-2024 Office outpatient visit 15 minutes Teri Sylvia Clem AFFILIATE MARKETING COORDINATOR-STRIPER Work Phone: [facility] Comment on above: Dizziness Start: 10-13-2022 Office outpatient ne w 30 minutes Lakia Crum Work Phone: [facility] Work Phone: Start: 10-13-2022 ambulatory Ms. Teri Maher Facility:[id number] Start: 09-22-2022 Telephone encounter [facility] Comment on above: Patient Question Start: 04-12-2021 End: 04-12-2021 Emergency department patient visit Marissa Lara [facility] Emergency 02 Procedures Date Procedure Procedure Detail Performing Clinician Start: 03-03-2024 ECG 12-LEAD TERI Alatorre TomásOD Start: 03-03-2024 Ecg routine ecg w/le ast 12 lds w/i&r Teri Sylvia Clem AFFILIATE MARKETING COORDINATOR-STRIPER Work Phone: Start: 10-27-2023 Mammography Teri W ood AFFILIATE MARKETING COORDINATOR-STRIPER Work Phone: Start: 11-27-2022 Colonoscopy Teri W ood AFFILIATE MARKETING COORDINATOR-STRIPER Work Phone: Start: 01-12-2022 Microscopic observat ion [Identifier] in Cervix by Cyto stain Teri Maher AFFILIATE MARKETING COORDINATOR-STRIPER Work Phone: Adenoid excision Lakia Crum Work Phone: Ligation of fallopia n tube Lakia Crum Work Phone: Plan of Treatment Date Care Activity Detail Author Start: 11-27-2032 Screening for malignant neoplasm of colon [facility] Start: 2032 RSV patients and/or patients aged 60+ years (1 - 1-dose 60+ series) RSV patients and/or patients aged 60+ years (1 - 1-dose 60+ series) [facility] Start: 04-12-2031 DTaP/Tdap/Td Vaccines (2 - Td or Tdap) DTaP/Tdap/Td Vaccines (2 - Td or Tdap) [facility] Start: 01-12-2025 Screening for malignant neoplasm of cervix [facility] Start: 10-27-2024 Screening for malignant neoplasm of breast Mammogram [facility] Start: 07-17-2024 Influenza vaccination Influenza Vaccine (Season Ended) [facility] Start: 07-17-2023 COVID-19 Vaccine ( season) COVID-19 Vaccine ( season) [facility] Start: 2022 Zoster Vaccines (1 of 2) Zoster Vaccines (1 of 2) [facility] Start: 07-17-2022 Influenza vaccination INFLUENZA (#1) [facility] Start: 11-16-2021 DEPRESSION ASSESSMENT DEPRESSION ASSESSMENT [facility] Start: 2017 COLOGUARD (FIT-DNA) COLOGUARD (FIT-DNA) [facility] Start: 2017 Colonoscopy COLONOSCOPY [facility] Start: 2017 COLORECTAL CANCER SCREENING COLORECTAL CANCER SCREENING [facility] Start: [address] COLONOGRAPHY [facility] Start: 2017 DIABETES SCREEN DIABETES SCREEN [facility] Start: 2017 FECAL OCCULT BLOOD FECAL OCCULT BLOOD [facility] Start: 2017 LIPID SCREEN LIPID SCREEN [facility] Start: 2017 SIGMOIDOSCOPY SIGMOIDOSCOPY [facility] Start: 2012 Mammography MAMMOGRAM [facility] Start: 2002 HPV TESTING HPV TESTING [facility] Start: 1993 PAP TESTING PAP TESTING [facility] Start: 1993 Screening for malignant neoplasm of cervix HPV/Cotest [facility] Start: 1991 Hepatitis B Vaccines (1 of 3 - 19+ 3-dose series) Hepatitis B Vaccines (1 of 3 - 19+ 3-dose series) [facility] Start: 1991 Urine microalbumin profile DTAP,TDAP,TD (1 - Tdap) [facility] Start: 1990 Diabetes mellitus screening Diabetes Screening [facility] Start: 1990 HEPATITIS C SCREENING HEPATITIS C SCREENING [facility] Start: 1990 Hepatitis C screening Hepatitis C Screening [facility] Start: 1990 HIV SCREENING HIV SCREENING [facility] Start: 1973 MMR Vaccines (1 of 1 - Standard series) MMR Vaccines (1 of 1 - Standard series) [facility] Start: 05-23-1973 COVID-19 VACCINE (#1) COVID-19 VACCINE (#1) [facility] Start: 1972 HEPATITIS B (1 of 3 - 3-dose series) HEPATITIS B (1 of 3 - 3-dose series) [facility] Start: 1972 HIV screening HIV Screening [facility] Start: 1972 Lipid panel Lipid Panel [facility] Start: 1972 Screening for malignant neoplasm of colon [facility] Start: 1972 Yearly Adult Physical Yearly Adult Physical [facility] Immunizations Immunization Date Immunization Notes Care Provider Fa noel 04-12-2021 tetanus toxoid, reduced diphtheria toxoid, and acellular pertussis vaccine, adsorbed Lakia Crum Other Phone: [facility] Payers Date Payer Category Payer Unknown [id number] 2019 Unknown 1972 Unknown [id number] 1972 Unknown [id number] Social History Date Type Detail Facility [facility] Tobacco smoking consumption unknown [facility] Start: 1972 Sex Assigned At Not on file [facility] Start: 03-03-2024 Non-smoker [facility]sm[facility] Work Phone: Start: 03-03-2024 Tobacco smoking stat us NHIS Never smoked tobacco [facility] Work Phone: Start: 03-03-2024 Tobacco use and exposure Smokeless tobacco non-user [facility] Work Phone: Start: 03-03-2024 Alcoholic beverage intake Current drinker of alcohol (finding) [facility] Work Phone: Start: 03-03-2024 Tobacco use panel [facility] Work Phone: Start: 02-22-2024 End: 03-03-2024 Exposure to SARS-CoV-2 (event) Not sure [facility] Evaluation + Plan note 03-03-2024 Assessment & Plan Note - PATRICE Zapata - 03/03/2024 11:09 AM EDT Note Date & Type Note Facility 03-03-2024 Evaluation + Plan note Associated Problem(s): Symptoms and Signs Noelle maneuvers Dramamine as needed [facility] Work Phone: Note 03-03-2024 Assessment & Plan Note - PATRICE Zapata - 03/03/2024 11:09 AM EDT Note Date & Type Note Facility 03-03-2024 Miscellaneous Notes Associate d Problem(s): Symptoms and Signs Noelle maneuvers Dramamine as needed documented in this encounter [facility] Work Phone: History of Present illness Narrative 03-03-2024 PATRICE Zapata - 03/03/2024 10:40 AM EDT Note Date & Type Note Facility 03-03-2024 History of Present illness Narrative Subjective Patient ID: Christine Olivier is a 53 y.o. female who presents for Vertigo and Ear Fullness. Christine comes to office for c/o bilateral ear fullness & dizziness. Initially felt off 2D prior to leaving to go to [place] last month. [place] dizziness kathy when rolling over in bed which caused her to feel nauseated. Slighted movements of head caused spinning sensation. Had Noelle maneuver performed by a a friend who works at the fire department and was treated with Dramaime. She indicates the symptoms of dizziness did resolve after the maneuver. This past Thursday she felt felt lightheaded working outside clearing the weeds. Dizziness started yesterday after getting out of the bed & trouble focusing. If she moves too quickly or turns head too quickly she will feel dizzy with associated nausea. No CP/syncopal episode. Heaviness/plugged sensation in both ears w/ nasal congestion. Headache yesterday. Head feels heavy . She is scheduled to have her friend come over again this evening and perform the Noelle maneuvers IO EKG: Normal sinus rhythm, ventricular rate 84 bpm. No previous EKGs for comparison. Review of Systems Constitutional: Positive for diaphoresis. HENT: Positive for congestion. Negative for ear pain. Bilateral ear fullness Respiratory: Negative for cough. Cardiovascular: Negative for chest pain. Gastrointestinal: Positive for nausea. Neurological: Positive for dizziness, light-headedness and headaches. Negative for syncope, speech difficulty and weakness. Objective BP 122/80 Pulse 80 Ht 1.626 m (5' 4 ) Wt 63 kg (138 lb 14.4 oz) SpO2 99% BMI 23.84 kg/m Physical Exam Vitals reviewed. Constitutional: Appearance: Normal appearance. She is normal weight. HENT: Right Ear: No decreased hearing noted. No drainage or swelling. A middle ear effusion is present. There is no impacted cerumen. Left Ear: No decreased hearing noted. No drainage or swelling. A middle ear effusion is present. There is no impacted cerumen. Nose: Right Turbinates: Enlarged. Left Turbinates: Enlarged. Mouth/Throat: Pharynx: No posterior oropharyngeal erythema. Neck: Thyroid: No thyromegaly or thyroid tenderness. Vascular: No carotid bruit. Cardiovascular: Rate and Rhythm: Normal rate and regular rhythm. Heart sounds: Normal heart sounds. Pulmonary: Breath sounds: Normal breath sounds. Musculoskeletal: Right lower leg: No edema. Left lower leg: No edema. Lymphadenopathy: Cervical: No cervical adenopathy. Neurological: Mental Status: She is alert. Assessment/Plan Problem List Items Addressed This Visit ICD-10-CM Dizziness R42 Relevant Orders ECG 12 lead (Clinic Performed) 1. Dizziness ECG 12 lead (Clinic Performed) ck EKG, dramamine as needed documented in this encounter [facility] Work Phone: Instructions 03-03-2024 Patient Instructions Note Date & Type Note Facility 03-03-2024 Instructions PATRICE Zapata - 03/03/2024 10:40 AM EDT Work excuse 03/03-03/04 Dramamine as needed for dizziness Add flonase 1 spray each nostril daily documented in this encounter [facility] Work Phone: Note 09-22-2022 Telephone Encounter - Princess Farris RN - 09/22/2022 5:49 PM ESTTelephone Encounter - Marcela Roberto - 09/22/2022 5:05 PM EST Note Date & Type Note Facility 09-22-2022 Miscellaneous Notes Formattin g of this note might be different from the original. Returned patient's call. She was seen by Dr. Montalvo at [facility] in 2017 for breast problems which required drainage. Her current symptoms are related to this previous problem and she is asking for appointment with Dr. Montalvo. Advised patient to call tomorrow AM to request appointment in General Surgery. Her PCP is in [place]. Princess Farris, RN Spoke with PT. She is experiencing pain where the lumps are located in her breast, swelling and severe radiating pain to arm pit when nipple is touched. Attempeted multiple times to reach a triage nurse to speak with pt and ended up loosing the conection. I did have the chance to inform the pt that I would be sending this message and the pt is aweare that a Nurse will be contacting her. Please call pt as soon as able. Thank you! Marcela Roberto documented in this encounter [facility] Evaluation note Note Date & Type Note Facility Evaluation note Diagnosis Dizziness Dizziness and giddiness documented in this encounter [facility] Work Phone: History of Present illness Narrative Note Date & Type Note Facility History of Present illness Narrative Christine comes to the office to re-establish care. Requests orders for mammography and screening colonoscopy. 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 In 2017 she had right breast cysts that were drained. Breasts described as feeling very tender & sore. Sleeping w/ bra on @ night. Feels like a toothache . Scheduled for well woman exam in Dec. of next year. MMG due in October. No fxhx breast CA. Menses: regular (varies by week to week on duration & timing) Brothers- well. Father NM @ age 65Y. Mom of asphasia in mid 60's. Limits caffeine kathy. around time of menses.last PAP <1Y ago; all previous PAP's normal per pt reportwill establish w/ [place] new CAPPER MACHINE [place]PER[place] low impact HIT workouts 15-40 5D/WKdiet: overall eats healthy; avoids sugar as it causes fatigueTdap UTD; recommend yrly influenza vaccination, shingles next yrremote renal stone 3Y ago; saw urology, watches diet & avoid spinach, broccoli & tea. Nonsurgical. Passed stone on own, no further stones since that time [facility] Work Phone: Summary Purpose Family History No Family History Records FoundUnknown Family Member Name Dates Details Family history of diabetes m ellitus: Mother(V18.0, Z83.3) Status:Active Aphasia determined by examin ation: Mother Status:Active Family history of myocardial infarction: Father(V17.3, Z82.49) Status:Active Advance Directives No Advanced Directives Records FoundNo Advanced Directives Records FoundNo Advanced Directives Records FoundNo Advanced Directives Records FoundNo Advanced Directives Records Found Chief Complaint NPV, INACTIVE, BREAST CONCERNS Reason for Referral Specialty Diagnoses / Procedures Referred By Contmargie t Referred To Contact Diagnoses Dizziness Procedures ECG 12 lead (Clinic Performed) Teri Maher, AFFILIATE MARKETING COORDINATOR-STRIPER [address] [place] [address] Referral ID Status Reason Start Date Expiration Date V isits Requested Visits Authorized [id number] Authorized 03/03/2024 03/03/2025 1 1 Additional Source Comments <item> Privacy Markings (unrecogniz ed section and content) Section Author: Gina Lange PROHIBITION ON REDISCLOSURE OF CONFIDENTIAL INFORMATION This notice accompanies a disclosure of information concerning a client made to you with the consent of such client. INFORMATION SOURCE (unrecogn ized section and content) DATE CREATED AUTHOR 04/16/2021 [facility] DATE CREATED AUTHOR AUTHOR'S ORGANIZ ATION 09/25/2022 [facility] DATE CREATED AUTHOR AUTHOR'S ORGANIZ ATION 10/13/2022 [facility] DATE CREATED AUTHOR AUTHOR'S ORGANIZ ATION 10/14/2022 [facility] DATE CREATED AUTHOR AUTHOR'S ORGANIZ ATION 03/08/2024 [facility] Source Comments (unrecognize d section and content) In the event this informatio n is protected by the Federal Confidentiality of Alcohol and Drug Abuse Patient Records regulations: The Federal rules restrict any use of the information to criminally investigate or prosecute any alcohol or drug abuse patient.[facility] Reason for Visit (unrecogniz ed section and content) Reason Comments Patient Question Reason Comments Vertigo Ear Fullness Care Teams (unrecognized sec tion and content) Passenger Solicitor Relationship Specialty Start Date End Date Lakia Crum MD PCP - General 11/16/20 FOR RECORDS PERTAINING TO PATIENTS WHO ARE OR HAVE BEEN ENROLLED IN A CHEMICAL DEPENDENCY/SUBSTANCEABUSE PROGRAM, SOME INFORMATION MAY BE OMITTED. This clinical summary was aggregated from multiple sources. Caution should be exercised in using it in the provision of clinical care. This summary normalizes information from multiple sources, and as a consequence, information in this document may materially change the coding, format and clinical context of patient data. In addition, data may be omitted in some cases. CLINICAL DECISIONS SHOULD BE BASED ON THE PRIMARY CLINICAL RECORDS. [facility]. provides no warranty or guarantee of the accuracy or completeness of information in this document.
[2024-09-08 02:05] LABS: Vitamin B12 417 pg/mL (211-911); Vitamin D,25 Hydroxy 29.9 ng/mL
== END | disposition home or self-care (01) ==
LOC: WOBLAB 14:31
PROVIDERS: PCP Family Medicine; Referring Provider Nurse Practitioner Family; Visit Provider Nurse Practitioner Family
DX: Z13.29 Encounter for screening for other suspected endocrine disorder (principal); N95.1 Menopausal and female climacteric states; R53.83 Other fatigue; Z13.21 Encounter for screening for nutritional disorder
CPT/HCPCS: 36415; 80053; 82306; 82607; 84439; 84443

== ENCOUNTER → 2024-11-03 | Outpatient (CLI) | payer OTHER, SELFPAY ==
--- NOTE | 2024-11-03 08:43 | BI_ITS ---
MAMMOGRAPHY - BILATERAL SCREENING REASON FOR EXAM: Female, 53 years old. Routine annual screening examination. PERTINENT HISTORY: Non-contributory. History of prior right breast aspiration. TECHNIQUE: Digital bilateral breast patrick (3D mammographic acquisition) in the CC and MLO projections. 2-D mediolateral oblique (MLO) and craniocaudad (CC) views of both breasts were obtained. CAD: Full Field Digital Mammography with Computer Added Detection was performed. COMPARISON: Comparison is made with prior study dated October 27, 2023 and October 17, 2022. FINDINGS: Breast Composition: The breasts are extremely dense, which lowers the sensitivity of mammography. There is a 5.2 cm x 4.3 cm well-defined nodule in the retroareolar region of the right breast. This was demonstrated to be a cyst on prior examination although this has increased in size. There is a 2.7 cm x 2.3 cm well-defined nodule in the upper lateral aspect of the left breast. There is also evidence of a 1.7 cm x 2.7 cm well-defined nodule in the retroareolar region of the left breast. These are demonstrated to be cysts on prior sonogram of the liver have increased in size. Further sonographic correlation recommended. No other significant abnormalities are identified. BI/SCRN MAMM (CAD)W/PATRICK BILAT IMPRESSION: Increased size of the previously seen bilateral breast nodules as described. Further sonographic follow-up recommended for evaluation. ASSESSMENT CATEGORY: BIRADS Category 0: Incomplete. Need additional imaging evaluation. A letter regarding these results will be sent to the patient by the facility within 30 days. Approximately 10% of breast cancers are not detected by mammography. A normal mammogram should not delay biopsy of a clinically suspicious abnormality. [id number] Electronically Signed: Rayray Cruz MD at 9:25 EST ,
== END | disposition home or self-care (01) ==
PROVIDERS: PCP Family Medicine; Referring Provider Nurse Practitioner Family; Visit Provider Nurse Practitioner Family
DX: Z12.31 Encounter for screening mammogram for malignant neoplasm of breast (principal)
CPT/HCPCS: 77063; 77067

== ENCOUNTER → 2024-11-07 | Outpatient (CLI) | payer OTHER, SELFPAY ==
--- NOTE | 2024-11-07 12:24 | US_ITS ---
STUDY: ULTRASOUND BREAST - RIGHT REASON FOR EXAM: Female, 53 years old. Abnormal screening mammogram. TECHNIQUE: Axial and longitudinal images of the RIGHT breast were performed with a high resolution ultrasound transducer. # OF IMAGES: 74 COMPARISON: Screening mammogram 11/03/2024 FINDINGS: RIGHT Breast: Heterogeneous macro and echotexture. Multiple longitudinal and transverse ultrasound images of the retroareolar right breast confirm a 4.5 cm oval parallel circumscribed anechoic mass with posterior enhancement consistent with a cyst corresponding to the mass seen on mammography.: Ultrasound IMPRESSION: Ultrasound confirms a 4.5 cm cyst in the retroareolar right breast. ASSESSMENT CATEGORY: BIRADS Category 2: Benign. A letter regarding these results will be sent to the patient by the facility within 30 days. Electronically Signed: Nghia Henderson MD at 16:49 EST , STUDY: ULTRASOUND BREAST - LEFT REASON FOR EXAM: Female, 53 years old. Abnormal screening mammogram. TECHNIQUE: Axial and longitudinal images of the LEFT breast were performed with a high resolution ultrasound transducer. # OF IMAGES: 74 COMPARISON: Screening mammogram 11/03/2024 FINDINGS: LEFT Breast: Heterogeneous background echotexture. At 3:00, 6 cm nipple, ultrasound confirms a 2.6 cm oval parallel circumscribed anechoic mass with posterior enhancement consistent with a cyst corresponding to the mass mammography.: US/Breast Limited Unilateral IMPRESSION: Ultrasound confirms a 2.6 cm cyst corresponding to the abnormality seen on mammography. ASSESSMENT CATEGORY: BIRADS Category 2: Benign. A letter regarding these results will be sent to the patient by the facility within 30 days. Electronically Signed: Nghia Henderson MD at 16:51 EST ,
== END | disposition home or self-care (01) ==
PROVIDERS: PCP Family Medicine; Referring Provider Nurse Practitioner Family; Visit Provider Nurse Practitioner Family
DX: R92.8 Other abnormal and inconclusive findings on diagnostic imaging of breast (principal)
CPT/HCPCS: 76642

== ENCOUNTER → 2025-08-03 | Outpatient (CLI) | payer BC, SELFPAY ==
--- NOTE | 2025-08-03 08:57 | US_ITS ---
PROCEDURE: BREAST LIMITED UNILATERAL 08/03/2025 REASON FOR EXAM: F, Age 54 y/o , PAIN COMPARISON: Prior mammogram done earlier in the day.. TECHNIQUE: Procedure Code: USBRSTLIMIT Modality: US Procedure: BREAST LIMITED UNILATERAL. The lateral midportion of the right breast was examined with ultrasound. FINDINGS: The palpable lump corresponds to a 3.3 cm x 4 cm 2.9 cm cyst. US/Breast Limited Unilateral IMPRESSION: The palpable lump corresponds to a 3.3 cm 4 cm 2.9 cm cyst. BI-RADS 2: BENIGN RECOMMENDATION: Routine annual follow-up in 1 Year Reading Location: [place] [id number]
--- NOTE | 2025-08-03 08:57 | BI_ITS ---
EXAM: DIAG MAMM W/CAD, BILAT 08/03/2025 CLINICAL HISTORY: F, Age 54 y/o , BREAST PAIN - RIGHT TECHNIQUE: Procedure Code: [id number] Modality: MG Procedure: DIAG MAMM W/CAD, BILAT. COMPARISON: Prior exam(s) dated November 03, 2024.. FINDINGS: TISSUE DENSITY: The breasts are extremely dense, which lowers the sensitivity of mammography. Bilateral Breast Mammographic Findings: Once again, there is a 2.5 cm x 2.5 cm well-defined nodule in the superior retroareolar region of the right breast. This has decreased in size as compared to prior study. There is evidence of a retroareolar well-defined nodule in the left breast. It presently measures 1.3 cm. The previously seen nodular density in the lateral aspect of the left breast has decreased in size as well measuring 1.3 cm. Correlation with ultrasound recommended. BI/DIAG MAMM W/CAD, BILAT IMPRESSION: The palpable lump in the right breast corresponds to a 2.5 cm 2.5 cm well-defin ed nodule. This was demonstrated to be a cyst on prior sonogram. OVERALL FINAL ASSESSMENT BI-RADS 0: INCOMPLETE - NEED ADDITIONAL IMAGING EVALUATION. RECOMMENDATION: Ultrasound Recommended A letter with findings and recommendations will be mailed to the patient. Reading Location: [place] [address]
== END | disposition home or self-care (01) ==
PROVIDERS: PCP Family Medicine; Referring Provider Surgery; Visit Provider Surgery
DX: N64.4 Mastodynia (principal)
CPT/HCPCS: 76642; 77062; 77066; G0279